=== PATIENT | male | born 1960 ===

== ENCOUNTER → 2019-07-11 | Outpatient (CLI) | payer OTHER ==
[2014-09-20 10:29] VITALS: BP 132/80
[~2019-07-11] MED LIST: CHOL100013 PO; GLUC100018 PO; METO25TA4 PO; MULT1TAB52 PO; OMEG500C3 PO; OMEP20CA5 PO; RAMI10CA53 PO
--- NOTE | 2019-07-11 16:20 | KCIC ---
AP and Lateral Views of the Chest 07/11/2019 12:00 AM Indication: Hemoptysis Comparison: None Findings: There is a right basilar consolidation possibly representing atelectasis, small effusion, or infiltrate. No pneumothorax is seen. Heart size is top normal. No acute osseous changes are seen. IMPRESSION: Right basilar consolidation possibly representing atelectasis, small effusion, or infiltrate. Radiographic follow-up to resolution recommended. Electronically signed by: Joel Camejo MD (07/11/2019 4:16 PM) [id number]
== END ==
LOC: KCIC 14:28
PROVIDERS: ATTEND Internal Medicine
DX: R04.2 Hemoptysis (principal); I10 Essential (primary) hypertension; E78.00 Pure hypercholesterolemia, unspecified; F32.9 Major depressive disorder, single episode, unspecified
CPT/HCPCS: 71046

== ENCOUNTER → 2019-07-18 | Outpatient (CLI) | payer OTHER ==
[2014-09-20 10:29] VITALS: BP 132/80
[~2019-07-18] MED LIST changes: +IOHEXOL 300 MG/ML 100ML VIAL. IV ONE
--- NOTE | 2019-07-18 11:10 | KCIC ---
EXAM: CT ANGIOGRAPHY OF THE CHEST WITH AND WITHOUT CONTRAST. HISTORY: Elevated d-dimer, hemoptysis, chest pain. TECHNIQUE: Computed tomographic angiography of the chest was performed before and after the intravenous administration of iodinated contrast. 3-D maximum intensity projections were also performed. COMPARISON: None. FINDINGS: Images of the upper abdomen reveal a cyst in the left renal upper pole measuring 7.6 cm. This is incompletely visualized. Mild diffuse hepatic steatosis is suspected. There is a separate origin of the left gastric artery or directly from the aorta. Bone windows reveal no suspicious lesions. No pulmonary emboli are identified. There is no aortic dissection or aneurysm. There are no pathologically enlarged mediastinal or axillary lymph nodes. There is no pericardial effusion. The heart is not enlarged. A rounded nodule in the right base contains some central gas density and measures 2.9 x 2.1 cm. There is mild surrounding groundglass opacity. This may represent scarring and rounded atelectasis but this is unclear. There is a small right pleural effusion. A tiny pleural-based nodule anteriorly in the right middle lobe on image 102 measures only 3 mm. Another in the right lower lobe on image 83 measures 4 mm. There is a calcified granuloma in the right upper lobe measuring 7 mm. Another medially in the left lower lobe on image 83 measures 3 mm. Another on image 99 measures 3 mm. There are no acute infiltrates. IMPRESSION: 1. No pulmonary embolism. 2. A 2.9 cm nodule in the right base may represent rounded atelectasis in the setting of remote pleural scarring but this is unclear. Comparison with any available prior CT of the chest or abdomen is recommended to assess chronicity. If none are available, percutaneous biopsy or PET/CT is recommended. 3. Trace right pleural effusion. 4. Multiple additional tiny pulmonary nodules require no further follow-up in the absence of strong risk factors. *One or more of the following individualized dose reduction techniques were utilized for this examination: 1. Automated exposure control. 2. Adjustment of the mA and/or kV according to patient size. 3. Use of iterative reconstruction technique. Electronically signed by: Alison Rankin MD (07/18/2019 11:07 AM) [facility]
== END | disposition home or self-care (01) ==
LOC: KCIC CT 09:31
PROVIDERS: ATTEND Internal Medicine
DX: J90 Pleural effusion, not elsewhere classified (principal); R91.8 Other nonspecific abnormal finding of lung field; J84.10 Pulmonary fibrosis, unspecified; I10 Essential (primary) hypertension; R79.89 Other specified abnormal findings of blood chemistry; R04.2 Hemoptysis
CPT/HCPCS: 71275; Q9967

== ENCOUNTER → 2021-10-31 | Outpatient (CLI) | payer OTHER ==
[2014-09-20 10:29] VITALS: BP 132/80
[~2021-10-31] MED LIST changes: -IOHEXOL 300 MG/ML 100ML VIAL. IV ONE; +MULT-445 PO; -MULT1TAB52 PO
--- NOTE | 2021-10-31 16:47 | KCIC ---
Exam: XR SHOULDER_LEFT 2+ VIEWS History: Fall. Pain, weakness, limited range of motion. Comparison: None. Findings: Osseous mineralization is normal. No acute fracture or dislocaton. Degenerative changes of the left a cromioclavicular joint with thin ossific body at the distal clavicle. The subacromial space is relati vely preserved. Soft tissues are unremarkable. Visualized left chest is within normal Impression: 1. Mild degenerative changes of the left shoulder without acute osseous abnormality. Electronically signed by: Luis Felipe Chavez MD (10/31/2021 4:45 PM) [id number]
== END ==
LOC: KCIC 12:43
PROVIDERS: ATTEND Internal Medicine
DX: S49.92XA Unspecified injury of left shoulder and upper arm, initial encounter (principal); M19.012 Primary osteoarthritis, left shoulder; W00.9XXA Unspecified fall due to ice and snow, initial encounter
CPT/HCPCS: 73030

== ENCOUNTER → 2021-11-18 | Outpatient (CLI) | payer OTHER ==
[2014-09-20 10:29] VITALS: BP 132/80
--- NOTE | 2021-11-18 16:43 | KCIC ---
XR EXAM OF ANKLE_LEFT 3V History: Reason: Lateral ankle pain a few wks, worse yesterday. / Spl. Instructions: Hx. ankle surger y. / History: Technique: 3 views left ankle Comparison: None. Findings: Small well-circumscribed lytic lesion within the lateral malleolus measures 0.8 x 0.5 cm with sclerot ic borders. Symmetric ankle mortise. No acute fracture. Ankle joint effusion. Lateral ankle soft tiss ue swelling. Mild ankle DJD. Impression: 1. No acute osseous abnormality. 2. Lateral ankle soft tissue swelling and ankle joint effusion. 3. Well-circumscribed lytic lesion within the lateral malleolus, may relate to prior surgery or juan ign fibro-osseous lesion. Electronically signed by: Tk Doshi DO (11/18/2021 4:40 PM) [id number]
== END ==
LOC: KCIC 13:18
PROVIDERS: ATTEND Internal Medicine
DX: S99.912A Unspecified injury of left ankle, initial encounter (principal); M19.072 Primary osteoarthritis, left ankle and foot; M25.472 Effusion, left ankle; M79.89 Other specified soft tissue disorders; M25.872 Other specified joint disorders, left ankle and foot; Z98.890 Other specified postprocedural states; X58.XXXA Exposure to other specified factors, initial encounter; Y93.89 Activity, other specified; Y92.89 Other specified places as the place of occurrence of the external cause; Y99.8 Other external cause status
CPT/HCPCS: 73610

== ENCOUNTER → 2021-11-29 | Outpatient (CLI) | payer OTHER ==
[2014-09-20 10:29] VITALS: BP 132/80
--- NOTE | 2021-11-29 13:47 | KCIC ---
Study: MRI left ankle without contrast INDICATION: Left ankle pain. COMPARISON: Left ankle radiographs 11/18/2021 TECHNIQUE: Multiplanar MR imaging of the left ankle performed without the use of intravenous or intra -articular contrast. FINDINGS: Bones/cartilage: Sequela of previous surgery at the lateral ankle. Mild chronic remodeling of the med ial and lateral malleoli. Arthrosis at the ankle is relatively mild with chondrosis and subchondral c ystic change at the mid posterior tibial plafond and chondrosis scattered elsewhere such as at the la teral talar dome. Small os trigonum. Mild naviculocuneiform arthrosis with subchondral cystic change at the dorsal aspect of the medial cuneiform. Mild reactive marrow edema at the lateral aspect of the calcaneal body in the region of the peroneal tubercle. Ligaments: Intact distal syndesmosis. 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 T he PTFL is intact. The deltoid ligament complex is intact. Intact spring and Lisfranc ligaments. Musculotendinous: Tendinosis and partial-thickness tearing of the peroneus longus above and distal to the lateral malleolus in addition to a full-thickness or near full-thickness tear at the distal karan in of the calcaneus where the tendon becomes poorly delineated. Mild peroneal tenosynovitis. Chronic split tear of the peroneus brevis. A portion of the peroneus brevis extends along the anterolateral m argin of the lateral malleolus. It is uncertain if this configuration is partly surgical induced. The peroneus brevis is seen to attach to the fifth metatarsal base. Hypertrophic Achilles tendinosis wit hout a tear. Intact PTT, FDL and FHL. Localized extensor digitorum longus tendinosis at the level of the talar head. Sinus Tarsi: Mostly replaced sinus tarsi fat signal by edema. Tarsal tunnel: Unremarkable. Plantar fascia: Mildly heterogeneous but intact central band adjacent to the calcaneal attachment. Miscellaneous: Small ankle joint effusion. Minimal fluid within the retrocalcaneal bursa and mild frankie ma of Kager's fat pad. Mild subcutaneous edema at the medial more so than lateral ankles. IMPRESSION: 1. Full-thickness or near full-thickness tear of the peroneus longus at the level of the distal calc aneus. More proximal to this there is tendinosis and chronic partial-thickness tearing. Peroneal teno synovitis. 2. Split tear of the peroneus brevis with a portion of the tendon located along the anterolateral ma rgin of the lateral malleolus. This may be in part postsurgical in nature given an adjacent surgical anchor. Correlate with operative history. 3. Hypertrophic tendinosis of the Achilles. Mild localized tendinosis of the extensor digitorum long us at the level of the talar head. 4. 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 Subchondral cystic change at the posteri or tibial plafond. Small ankle joint effusion. 5. Chronic disruption of the ATFL and chronic partial-thickness tear of the CFL. 6. Edematous sinus tarsi. Correlate for symptoms of sinus tarsi syndrome. Electronically signed by: MALLORY CODY MD (11/29/2021 1:45 PM) [id number]
== END ==
LOC: KCIC MRI 09:20
PROVIDERS: ATTEND Internal Medicine
DX: S86.312A Strain of muscle(s) and tendon(s) of peroneal muscle group at lower leg level, left leg, initial encounter (principal); S93.492A Sprain of other ligament of left ankle, initial encounter; S86.392A Other injury of muscle(s) and tendon(s) of peroneal muscle group at lower leg level, left leg, initial encounter; M65.872 Other synovitis and tenosynovitis, left ankle and foot; M76.62 Achilles tendinitis, left leg; M19.072 Primary osteoarthritis, left ankle and foot; M25.472 Effusion, left ankle; M94.272 Chondromalacia, left ankle and joints of left foot; R60.9 Edema, unspecified; M25.872 Other specified joint disorders, left ankle and foot; X58.XXXA Exposure to other specified factors, initial encounter; Y93.89 Activity, other specified; Y92.89 Other specified places as the place of occurrence of the external cause; Y99.8 Other external cause status
CPT/HCPCS: 73721